=== PATIENT | female | born 1940 | race Caucasian/White ===

== ENCOUNTER 2017-01-08 09:43 | Emergency (ER) | payer MEDICARE ==
[2017-01-08] MEDS ORDERED: IOPAMIDOL 370 (76%) 100 ML VIAL IV ONE (09:44)
--- NOTE | 2017-01-08 10:24 | RAD ---
01/08/2017 10:17 AM CHEST-AP BEDSIDE History: Shortness of breath Comparison: Chest x-ray 08/26/2014 Findings: Single AP view of the chest is obtained. The lungs demonstrates significant volume loss within the right chest, with rightward shift of the cardiomediastinal contents. Lung markings are noted to the periphery on the left without evidence of pneumothorax. Hyperinflation is present on the left, compensatory. Subpulmonic effusion may also be present. The cardiomediastinal silhouette otherwise unremarkable. The osseous structures are intact.. EKG leads overlie the chest. IMPRESSION: Possible subpulmonic effusion with significant volume loss on the right causing rightward shift of the cardiomediastinal contents. No evidence of left pneumothorax is present though hyperinflation is noted on the left.
[2017-01-08] MEDS ORDERED: LORAZEPAM 2 MG/ML 1ML SDV ONE (10:44)
[2017-01-08 10:45] LABS: ABSOLUTE NEUTROPHIL COUNT 8.8 K/mm3 (1.8-7.7); BASO % 0.2 % (0.2-1.0); HEMOGLOBIN 15.8 gm/l (12.0-16.0); IMM NEUT # 0.1 K/mm3 (0-0.2); IMM NEUT% 0.8 % (0-1); LYMPH # 1.1 (1.0-4.8); LYMPH % 10.7 % (15-45); MEAN CELL VOLUME 97.6 fl (81.0-99.0); MEAN CORPUSCULAR HEMOGLOBIN 32.1 pg (27.0-31.0); MEAN CORPUSCULAR HGB CONC 32.9 g/dl (33.0-37.0); MEAN PLATELET VOLUME 10.6 fl (7.4-10.4); MONO # 0.5 (0.0-0.8); MONO % 4.4 % (4-12); NEUT % 83.9 % (43-75); PLATELET COUNT 193 K/mm3 (130-400); RED CELL DISTRIBUTION WIDTH 14.7 % (11.5-14.5)
[2017-01-08 10:54] LABS: ALB/GLOB RATIO 1.8 (>1.0); ALBUMIN 4.2 gm/dL (3.5-5.7); CALCIUM 9.5 mg/dL (8.6-10.3); MAGNESIUM 2.2 mg/dL (1.9-2.7)
[2017-01-08] MEDS ORDERED: PROPOFOL 100 ML IV ONE ×2 (11:17→14:55)
[2017-01-08] MEDS ORDERED: SODIUM CHLORIDE 0.9% 2,000 ML ONE (11:17)
[2017-01-08] MEDS ORDERED: CEFTRIAXONE SODIUM 1 G VIAL ONE (11:17)
[2017-01-08] MEDS ORDERED: KETAMINE HCL 50 MG/1 ML 10ML VIAL ONE (11:18)
[2017-01-08] MEDS ORDERED: [UNRECOGNIZED DRUG - OTHER] ONE (11:18)
[2017-01-08] MEDS ORDERED: CEFTRIAXONE 1 GRAM DUPLEX 50 ML IV ONE (11:19)
--- NOTE | 2017-01-08 11:51 | CT ---
INDICATION: Shortness of breath and hypoxemia. COMPARISON: Plain films earlier on the same day TECHNIQUE: Helical scan mode CT of the Thorax with 2 mm collimated images were obtained after uneventful intravenous contrast administration of 80 of [id number]. Sagittal and coronal reformations with high resolution lung algorithm images were also created at this time. Maximal intensity projection images and 3-D volumetric sequences were created at a separate, dedicated workstation. DLP: 696.1 FINDINGS: There are no pulmonary arterial filling defects. A large mass is identified in the right hilar region, causing near-complete collapse of the right lower lobe bronchus. This measures approximately 4.1 x 6.5 cm on axial image 45. The lesion extends from the hilum out to the inferior aspect of the right upper lobe. Much of the basilar segments of the right lower lobe are decompressed, causing the rightward shift of the cardiomediastinal contents. No pleural effusion. Subcarinal node on image 49 measures 1.1 x 1.6 cm. Inferior right hilar node on image 56 measures 2.1 x 1.4 cm. No other definite adenopathy. 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 Limited evaluation of the upper abdomen demonstrates no gross abnormalities. Review of bone windows demonstrates no osteoblastic or lytic lesions. IMPRESSION: 1. Negative for pulmonary embolism. 2. Large right hilar lesion with adenopathy, with near complete collapse of the right lower lobe bronchus. Atelectasis involving the basilar segments is noted, causing the rightward shift. Findings represent malignancy till proven otherwise. 3. Descending thoracic aortic aneurysm as above. Findings were called to Dr. Salmon at approximately 1146 hours on 01/08/2017.
--- NOTE | 2017-01-08 12:36 | RAD ---
01/08/2017 12:29 PM CXR FOR PLACEMENT/LINE or TUBE History: ET tube and NG tube placement Comparison: Plain films earlier on the same day and CTA chest earlier on the same day. Findings: Single AP view of the chest is obtained. The lungs again demonstrate the collapse of the right lower lobe with volume loss. Hyperinflation of the left lung. The cardiomediastinal silhouette rightward shift of the cardiac mediastinal contents secondary to the volume loss. The osseous structures are intact.. Endotracheal tube terminates proximal 4.4 cm above the chloe. Nasogastric tube travels below the diaphragm. The side port may be near the gastroesophageal junction. IMPRESSION: Lines and tubes as above. Unchanged appearance to the patient's chest otherwise.
[2017-01-08] MEDS ORDERED: FENTANYL IV PRN (12:37)
[2017-01-08] MEDS ORDERED: SODIUM CHLORIDE 0.9% IV PRN (12:37)
[2017-01-08 13:55] LABS: ARTERIAL BLOOD GAS BASE EXCESS -2.7 mmol/L (-2.0-2.0); ARTERIAL BLOOD GAS HCO3 18.7 mmol/L (22.0-28.0); ARTERIAL BLOOD GAS PCO2 25.4 mmHg (35.0-45.0); ARTERIAL BLOOD GAS PO2 50.7 mmHg (80.0-90.0); ARTERIAL BLOOD GAS pH 7.485 (7.350-7.450)
[2017-01-08 13:55] LABS: ARTERIAL BLOOD GAS pH 7.386 (7.350-7.450)
[2017-01-08 13:56] LABS: ARTERIAL BLOOD GAS BASE EXCESS -6.6 mmol/L (-2.0-2.0); ARTERIAL BLOOD GAS HCO3 16.9 mmol/L (22.0-28.0); ARTERIAL BLOOD GAS PCO2 28.8 mmHg (35.0-45.0); ARTERIAL BLOOD GAS PO2 48.1 mmHg (80.0-90.0)
[2017-01-08 15:23] LABS: ARTERIAL BLOOD GAS BASE EXCESS -5.1 mmol/L (-2.0-2.0); ARTERIAL BLOOD GAS HCO3 19.5 mmol/L (22.0-28.0); ARTERIAL BLOOD GAS PCO2 34.9 mmHg (35.0-45.0); ARTERIAL BLOOD GAS PO2 90.6 mmHg (80.0-90.0); ARTERIAL BLOOD GAS pH 7.364 (7.350-7.450)
== END 2017-01-08 15:54 | disposition short-term general hospital (02) ==
LOC: ED 09:43
DX: I71.2 Thoracic aortic aneurysm, without rupture (principal); R91.8 Other nonspecific abnormal finding of lung field; E78.5 Hyperlipidemia, unspecified; E78.00 Pure hypercholesterolemia, unspecified; D49.7 Neoplasm of unspecified behavior of endocrine glands and other parts of nervous system; J45.909 Unspecified asthma, uncomplicated; Z99.11 Dependence on respirator [ventilator] status
CPT/HCPCS: 83605; 83880; 82803 ×3; 85025; 87040 ×2; 80053; 83735; 84484; 71010; 71275; 36600 ×3; 94660; 94002; 96375 ×2; 99291 ×2; 31500 ×2; 51702; 96365; 96366 ×3; 96367 ×2; 49440; 93005; J2060; J7050; J7030; J0330; Q9967; J0696